=== PATIENT | female | born 1950 | race Caucasian/White ===

== ENCOUNTER 2019-07-30 10:45 | Inpatient (IN) | payer MEDICARE ==
[2019-07-30 11:25] LABS: ABSOLUTE BASOPHILS # (AUTO) 0.1 10^3/uL (0.0-0.2); ABSOLUTE EOSINOPHILS # (AUTO) 0.1 10^3/uL (0.0-0.6); ABSOLUTE LYMPHOCYTES (AUTO) 2.3 10^3/uL (0.5-4.7); ABSOLUTE MONOCYTES (AUTO) 0.9 10^3/uL (0.1-1.4); ABSOLUTE NEUT (AUTO) 4.5 10^3/uL (1.7-8.2); BASOPHILS % (AUTO) 0.9 % (0-2); HEMATOCRIT 45.3 % (36.0-47.0); HEMOGLOBIN 15.4 g/dL (12.0-15.5); LYMPHOCYTES % (AUTO) 29.8 % (13-45); MEAN CORPUSCULAR HEMOGLOBIN 31.3 pg (27.0-33.4); MEAN CORPUSCULAR HGB CONC 33.9 g/dL (32.0-36.0); MEAN CORPUSCULAR VOLUME 92 fl (80-97); MONOCYTES % (AUTO) 11.3 % (3-13); PLATELET COUNT 377 10^3/uL (150-450); RED BLOOD COUNT 4.91 10^6/uL (3.72-5.28); RED CELL DISTRIBUTION WIDTH 12.6 % (11.5-14.0); TOTAL CELLS COUNTED % (AUTO) 100 %; WHITE BLOOD COUNT 7.9 10^3/uL (4.0-10.5)
[2019-07-30 11:45] LABS: ALBUMIN 5.3 g/dL (3.5-5.0); ALKALINE PHOSPHATASE 81 U/L (38-126); ANION GAP 16 (5-19); ASPARTATE AMINO TRANSFERASE 32 U/L (14-36); BILIRUBIN,DIRECT 0.3 mg/dL (0.0-0.4); BILIRUBIN,TOTAL 0.5 mg/dL (0.2-1.3); BLOOD UREA NITROGEN 11 mg/dL (7-20); CALCIUM 10.3 mg/dL (8.4-10.2); CARBON DIOXIDE 24 mmol/L (22-30); CHLORIDE 104 mmol/L (98-107); CREATINE KINASE 78 U/L (30-135); GLUCOSE 86 mg/dL (75-110); POTASSIUM 4.3 mmol/L (3.6-5.0); TOTAL PROTEIN 8.9 g/dL (6.3-8.2)
[2019-07-30 11:54] LABS: APPEARANCE,URINE CLEAR; BILIRUBIN,URINE NEGATIVE (NEGATIVE); COLOR,URINE YELLOW; GLUCOSE, URINE NEGATIVE (NEGATIVE); KETONES,URINE NEGATIVE (NEGATIVE); LEUKOCYTE ESTERASE,URINE SMALL (NEGATIVE); NITRITE,URINE NEGATIVE (NEGATIVE); PROTEIN,URINE NEGATIVE (NEGATIVE); URINE SPECIFIC GRAVITY 1.006; UROBILINOGEN,URINE NEGATIVE mg/dL (<2.0)
[2019-07-30 12:02] LABS: CREATINE KINASE MB 1.51 ng/mL (<4.55)
--- NOTE | 2019-07-30 12:06 | RADIOLOGY REPORT (SQ) ---
EXAM DESCRIPTION: CHEST SINGLE VIEW COMPLETED DATE/TIME: 07/30/2019 11:51 am REASON FOR STUDY: bed 2 db COMPARISON: None. EXAM PARAMETERS: NUMBER OF VIEWS: One view. TECHNIQUE: Single frontal radiographic view of the chest acquired. RADIATION DOSE: NA LIMITATIONS: None. FINDINGS: LUNGS AND PLEURA: 3 mm calcified granuloma in the right upper lobe. There is no consolida tion, pleural effusion or pneumothorax. MEDIASTINUM AND HILAR STRUCTURES: No mediastinal or hilar contour abnormality. HEART AND VASCULAR STRUCTURES: The cardiac silhouette and pulmonary vasculature are within normal whalen its. BONES: No acute findings. HARDWARE: None in the chest. OTHER: No other finding. IMPRESSION: No acute cardiopulmonary process. TECHNICAL DOCUMENTATION: JOB ID: [id number] [employer]- All Rights Reserved Reading location - IP/workstation name: [email or web address]
[2019-07-30 12:07] LABS: TROPONIN I < 0.012 ng/mL
--- NOTE | 2019-07-30 12:21 | ER Document Report ---
ED General - General Chief Complaint: Shortness Of Breath Stated Complaint: SHORTNESS OF BREATH Time Seen by Provider: 07/30/19 12:07 Notes: 69-year-old female with no known medical problems presents to the emergency department via EMS for shortness of breath. Patient states that she does not know why it started and she broke down crying when I was interviewing her. She did complain of a little bit of chest pain in the left axillary area, denied nausea or dyspnea on exertion, patient is a smoker. No positive family history. No known cardiac history. No recent illness. Patient did recently have a abscess drained in the back of her head and states that she is on Bactrim. TRAVEL OUTSIDE OF THE [place] IN LAST 30 DAYS: No - Related Data Allergies/Adverse Reactions: No Known Allergies Allergy (Unverified 07/30/19 11:47) Past Medical History - Social History Smoking Status: Current Some Day Smoker Chew tobacco use (# tins/day): No Frequency of alcohol use: None Drug Abuse: None Family History: Reviewed & Not Pertinent Patient has suicidal ideation: No Patient has homicidal ideation: No Past Surgical History: Reports: Hx Section Review of Systems - Review of Systems Constitutional: See HPI EENT: No symptoms reported, See HPI Cardiovascular: See HPI Respiratory: No symptoms reported Gastrointestinal: See HPI Genitourinary: No symptoms reported Female Genitourinary: No symptoms reported Musculoskeletal: No symptoms reported Skin: No symptoms reported Hematologic/Lymphatic: No symptoms reported Neurological/Psychological: No symptoms reported Physical Exam - Vital signs Vitals: Temp Pulse Resp BP Pulse Ox 97.6 F 81 15 130/72 H 100 07/30/19 11:51 07/30/19 11:51 07/30/19 11:51 07/30/19 11:51 07/30/19 11:51 - Notes Notes: PHYSICAL EXAMINATION: Reviewed vital signs and charting by RN GENERAL: Alert, interacts well. No acute distress. HEAD: Normocephalic, atraumatic. EYES: Pupils equal and round. Extraocular movements intact. ENT: Oral mucosa moist, tongue midline. NECK: Full range of motion. Trachea midline. LUNGS: Clear to auscultation bilaterally, no wheezes, rales, or rhonchi. No respiratory distress. HEART: Irregularly irregular rhythm. No murmur ABDOMEN: soft, non-tender. No distention. Bowel sounds present EXTREMITIES: Moves all 4 extremities spontaneously. No edema, No cyanosis. PSYCH: Normal affect, normal mood. SKIN: Warm, dry, normal turgor. No rashes or lesions noted. Course - Re-evaluation Re-evalutation: 07/30/19 12:19 Patient presents in new onset A. fib with shortness of breath. EKG showed an irregularly irregular rhythm with a rate of 106, borderline left axis deviation, no ST segment elevations or ST segment depressions. Initial troponin negative. Patient does have a lot of anxiety. 07/30/19 13:48 Patient was started on a Cardizem drip and given a first dose of Lovenox 1 mg/kg. I called Dr. Ellsworth for consultation and called the hospitalist, Dr. Lewis, who admitted the patient to a telemetry bed. - Vital Signs Vital signs: Temp Pulse Resp BP Pulse Ox 97.6 F 81 15 130/72 H 100 07/30/19 11:51 07/30/19 11:51 07/30/19 11:51 07/30/19 11:51 07/30/19 11:51 - Laboratory Result Diagrams: 07/30/19 11:02 07/30/19 11:02 Laboratory results interpreted by me: 07/30/19 07/30/19 11:00 11:02 Calcium 10.3 H Total Protein 8.9 H Albumin 5.3 H Ur Leukocyte Esterase SMALL H Discharge - Discharge Clinical Impression: New onset atrial fibrillation Condition: Stable Disposition: ADMITTED INPATIENT Admitting Provider: Rogerio (Hospitalist) Unit Admitted: Telemetry
[2019-07-30] MEDS ORDERED: DILTIAZEM HCL/D5W 125 MG/125 ML RTUINJ IV PRN ×2 (13:23→15:38)
[2019-07-30] MEDS: ENOXAPARIN SODIUM INJ 80 MG/0.8 ML DISP.SYRIN SUBCUT SCH ×2 (14:18→21:37)
[2019-07-30] MEDS ORDERED: ACETAMINOPHEN 325 MG TABLET PO PRN (14:44)
[2019-07-30] MEDS ORDERED: DEXTROSE 40% GEL 15 GM TUBE PO PRN ×2 (14:46)
[2019-07-30] MEDS ORDERED: GLUCAGON,HUMAN RECOMB 1 MG INJ SUBCUT PRN (14:46)
[2019-07-30] MEDS ORDERED: DEXTROSE 50%-WATER 25 GM/50 ML DISP.SYRIN IV PRN ×2 (14:46)
[2019-07-30] MEDS ORDERED: DILTIAZEM HCL INJ 25 MG/5 ML VIAL IV PRN (15:04)
--- NOTE | 2019-07-30 15:37 | PDOC H&P ---
History of Present Illness Admission Date/PCP: 07/30/19 14:30 Patient complains of: Shortness of breath History of Present Illness: NESTOR CHAO is a 69 year old female with no significant past medical history presents with complaints of shortness of breath which started this morning. At the time patient was standing up playing a guitar. Shortness of breath lasted until patient arrived to the hospital. Was associated with mild lightheadedness. Patient denied noticing any palpitations at the time and also denies any chest pain. Patient denies any history of irregular heart rhythm or atrial fibrillation. EMS was called. On arrival EMS noted that her heart rate was ranging between 110-140s in atrial fibrillation and was given a bolus IV of diltiazem. In the ER patient was subsequently placed on a diltiazem drip the hospitalist service was called for admission. At this time, patient states that all the symptoms are resolved and she just feels a little bit tired. Patient does admit to caffeine use. Past Medical History Cardiac Medical History: Denies: Atrial Fibrillation, Congestive Heart Failure, Coronary Artery Disease, Hypertension, Peripheral Vascular Disease Pulmonary Medical History: Denies: Asthma, Chronic Obstructive Pulmonary Disease (COPD) Endocrine Medical History: Denies: Diabetes Mellitus Type 1, Diabetes Mellitus Type 2, Hyperthyroidism, Hypothyroidism Infectious History Note: Recent abscess in the back of her neck status post I&D Past Surgical History Past Surgical History: Reports: Section Social History Information Source: Patient Smoking Status: Current Some Day Smoker Electronic Cigarette use?: No Number of Years Smokin Last Time Smoked: Yesterday Frequency of Alcohol Use: None Hx Recreational Drug Use: No Drugs: None Hx Prescription Drug Abuse: No - Advance Directive Resuscitation Status: Full Code Family History Family History: None Parental Family History Reviewed: Yes Children Family History Reviewed: Yes Sibling(s) Family History Reviewed.: Yes Medication/Allergy Home Medications: Acetaminophen [Tylenol 325 mg Tablet] 650 mg PO Q4HP PRN 07/30/19 Sulfamethoxazole/Trimethoprim [Bactrim Ds Tablet] 1 each PO Q12 07/30/19 Allergies/Adverse Reactions: No Known Allergies Allergy (Unverified 07/30/19 11:47) Review of Systems Constitutional: ABSENT: chills, fatigue, fever(s) Eyes: ABSENT: visual disturbances Nose, Mouth, and Throat: ABSENT: headache(s) Cardiovascular: ABSENT: chest pain, edema, palpitations Respiratory: ABSENT: cough Gastrointestinal: ABSENT: abdominal pain, constipation, diarrhea, nausea, vomiting Genitourinary: ABSENT: dysuria Musculoskeletal: ABSENT: back pain, muscle weakness Integumentary: ABSENT: diaphoresis Neurological: ABSENT: confusion, syncope Endocrine: ABSENT: cold intolerance, heat intolerance Physical Exam Vital Signs: Temp Pulse Resp BP Pulse Ox 97.6 F 81 18 107/66 98 07/30/19 11:51 07/30/19 11:51 07/30/19 14:06 07/30/19 14:06 07/30/19 14:06 Intake & Output 07/29/19 07/30/19 07/31/19 06:59 06:59 06:59 Weight 65.317 kg General appearance: PRESENT: no acute distress, cooperative Head exam: PRESENT: normocephalic Neck exam: PRESENT: other - Well-healed I&D incision in the back of her neck without any active drainage or fluctuance or erythema. ABSENT: JVD Respiratory exam: PRESENT: clear to auscultation nicki, symmetrical, unlabored. ABSENT: tachypnea, wheezes Cardiovascular exam: PRESENT: irregular rhythm, +S1, +S2, tachycardia. ABSENT: diastolic murmur, rubs, systolic murmur GI/Abdominal exam: PRESENT: ascites, normal bowel sounds, soft. ABSENT: gu arding, rebound, rigid, tenderness Extremities exam: ABSENT: joint swelling, pedal edema Musculoskeletal exam: PRESENT: ambulatory Neurological exam: PRESENT: alert, awake, oriented to person, oriented to place, oriented to time, oriented to situation Results Laboratory Results: 07/30/19 11:02 07/30/19 11:02 07/30/19 07/30/19 07/30/19 11:00 11:02 11:02 WBC 7.9 RBC 4.91 Hgb 15.4 Hct 45.3 MCV 92 MCH 31.3 MCHC 33.9 RDW 12.6 Plt Count 377 Seg Neutrophils % 57.0 Sodium 144.0 Potassium 4.3 Chloride 104 Carbon Dioxide 24 Anion Gap 16 BUN 11 Creatinine 0.91 Est GFR ( Amer) > 60 Glucose 86 Calcium 10.3 H Total Bilirubin 0.5 AST 32 Alkaline Phosphatase 81 Total Protein 8.9 H Albumin 5.3 H TSH Urine Color YELLOW Urine Appearance CLEAR Urine pH 7.0 Ur Specific Bertrand 1.006 Urine Protein NEGATIVE Urine Glucose (UA) NEGATIVE Urine Ketones NEGATIVE Urine Blood NEGATIVE Urine Nitrite NEGATIVE Ur Leukocyte Esterase SMALL H Urine WBC (Auto) 3 Urine RBC (Auto) 1 07/30/19 11:02 WBC RBC Hgb Hct MCV MCH MCHC RDW Plt Count Seg Neutrophils % Sodium Potassium Chloride Carbon Dioxide Anion Gap BUN Creatinine Est GFR ( Amer) Glucose Calcium Total Bilirubin AST Alkaline Phosphatase Total Protein Albumin TSH 1.24 Urine Color Urine Appearance Urine pH Ur Specific Bertrand Urine Protein Urine Glucose (UA) Urine Ketones Urine Blood Urine Nitrite Ur Leukocyte Esterase Urine WBC (Auto) Urine RBC (Auto) 07/30/19 07/30/19 11:02 11:02 Creatine Kinase 78 CK-MB (CK-2) 1.51 Troponin I < 0.012 Impressions: Chest X-Ray 07/30/19 10:52 IMPRESSION: No acute cardiopulmonary process. Assessment and Plan - Diagnosis (1) Atrial fibrillation with rapid ventricular response Is this a current diagnosis for this admission?: Yes Plan: New onset atrial fibrillation with rapid ventricular response -Maintain on diltiazem drip -Admit to [facility] -I will start on p.o. diltiazem 30 mg every 6 hours while monitoring heart rate response monitoring blood pressure. -ChadsVASC of 2 --> Starting on lovenox and will transition to NOAC tomorrow. -Cardiology consulted -outpatient Echo -Follow-up TSH -Patient advised to avoid caffeine (2) Dyspnea Qualifiers: Dyspnea type: shortness of breath Qualified Code(s): R06.02 - Shortness of breath; R06.00 - Dyspnea, unspecified; R06.01 - Orthopnea Is this a current diagnosis for this admission?: Yes Plan: Dyspnea was likely secondary to A. fib with RVR. Currently has resolved. Chest x-ray negative. Troponin was negative. (3) Abscess of skin of neck Is this a current diagnosis for this admission?: Yes Plan: -S/p I&D in outside institution -Continue Bactrim which patient was placed on to complete a 10-day therapy on 07/05/2019 - Time Time Spent with patient: 35 or more minutes
[2019-07-30] MEDS: DILTIAZEM HCL 30 MG TABLET PO SCH ×2 (15:46→23:54)
--- NOTE | 2019-07-30 20:43 | ADVANCED CARE ---
- Diagnosis (1) Atrial fibrillation with rapid ventricular response Diagnosis Current: Yes (2) Dyspnea Diagnosis Current: Yes Attendance: Patient and myself Resuscitation Status: Full Code Discussion: Had discussion with patient regarding code status if cardiac arrest should occur specifically. Patient opted to be full code and states that she can be intubated if in such a scenario but her son Alex would be the one to determine how long patient should stay on a vent if that should occur. Patient also agreeable to intubation even in absence of cardiac arrest if simply needed for O2 supplementation or work of breathing or for the sake of an interventional procedure. Discussed if patient is agreeable to cardioversion if it occurs in the setting of unstable AFib and explained details of such scenario and patient is agreeable to this as well. Further discussed other potential options for treating stable afIB. Document(s) Completed: None Time Spent: 17 minutes
[2019-07-30] MEDS: SULFAMETHOXAZOLE/TRIMETHOPRIM 800-160 MG TABLET PO SCH (21:39)
[2019-07-31 04:56] LABS: INTERNATIONAL RATION (INR) 1.05; PROTHROMBIN TIME 13.8 SEC (11.4-15.4)
[2019-07-31 04:57] LABS: PARTIAL THROMBOPLASTIN TIME 42.2 SEC (23.5-35.8)
[2019-07-31 05:12] LABS: ANION GAP 11 (5-19); BLOOD UREA NITROGEN 9 mg/dL (7-20); CALCIUM 9.5 mg/dL (8.4-10.2); CARBON DIOXIDE 22 mmol/L (22-30); CHLORIDE 109 mmol/L (98-107); GLUCOSE 100 mg/dL (75-110); POTASSIUM 4.4 mmol/L (3.6-5.0)
[2019-07-31] MEDS: DILTIAZEM HCL 30 MG TABLET PO SCH ×2 (06:13→12:11)
[2019-07-31] MEDS: ENOXAPARIN SODIUM INJ 80 MG/0.8 ML DISP.SYRIN SUBCUT SCH (09:33)
[2019-07-31] MEDS: SULFAMETHOXAZOLE/TRIMETHOPRIM 800-160 MG TABLET PO SCH (09:34)
[2019-07-31 10:48] VITALS: BP 115/65
[2019-07-31] MEDS ORDERED: LIDOCAINE 1%/EPINEPHRINE INJ 20 ML VIAL INJ PRN (15:00)
--- NOTE | 2019-07-31 15:23 | PDOC CONSULTATION ---
Consultation Consult Date: 07/31/19 Provider Consulted: JACKIE GRAVES History of Present Illness Admission Date/PCP: 07/30/19 14:30 History of Present Illness: NESTOR CHAO is a 69 year old female who underwent a I&D of a posterior lower scalp abscess about a week ago. She noted that they drained a lot of pus at that time. She initially did well but however now she has developed recurrent swelling with pain and tenderness. No fever. No drainage at this time. Patient is currently in the hospital for evaluation of atrial fib and has been started on anticoagulation. Past Medical History Cardiac Medical History: Denies: Atrial Fibrillation, Congestive Heart Failure, Coronary Artery Disease, Hypertension, Peripheral Vascular Disease Pulmonary Medical History: Denies: Asthma, Chronic Obstructive Pulmonary Disease (COPD) Endocrine Medical History: Denies: Diabetes Mellitus Type 1, Diabetes Mellitus Type 2, Hyperthyroidism, Hypothyroidism Past Surgical History Past Surgical History: Reports: Section Social History Smoking Status: Current Every Day Smoker Cigarettes Packs Per Day: 1 Electronic Cigarette use?: No Number of Years Smokin Last Time Smoked: Yesterday Frequency of Alcohol Use: None Hx Recreational Drug Use: No Drugs: None Hx Prescription Drug Abuse: No - Advance Directive Resuscitation Status: Full Code Family History Family History: None Parental Family History Reviewed: No Children Family History Reviewed: No Sibling(s) Family History Reviewed.: No Medication/Allergy Home Medications: Acetaminophen [Tylenol 325 mg Tablet] 650 mg PO Q4HP PRN 07/30/19 Sulfamethoxazole/Trimethoprim [Bactrim Ds Tablet] 1 tab PO Q12 07/30/19 Apixaban [Eliquis 5 mg Tablet] 5 mg PO Q12 #60 tablet 07/31/19 Diltiazem HCl [Cardizem Cd 120 mg Capsule] 1 cap.sr PO DAILY #30 cap.sr 07/31/19 Allergies/Adverse Reactions: No Known Allergies Allergy (Unverified 07/30/19 11:47) Physical Exam Vital Signs: Temp Pulse Resp BP Pulse Ox 97.7 F 62 18 115/65 100 07/31/19 10:46 07/31/19 10:46 07/31/19 10:46 07/31/19 10:46 07/31/19 10:46 Intake & Output 07/30/19 07/31/19 08/01/19 06:59 06:59 06:59 Intake Total 673 240 Balance 673 240 Weight 65.2 kg General appearance: PRESENT: no acute distress, cooperative Neck exam: PRESENT: other - At the lower posterior scalp just above the hairline there is an approximately 3 cm region of fluctuance with overlying erythema and tenderness. Respiratory exam: PRESENT: clear to auscultation nicki Cardiovascular exam: PRESENT: RRR Results Laboratory Results: 07/30/19 11:02 12 04:19 07/31/19 04:19 Sodium 141.6 Potassium 4.4 Chloride 109 H Carbon Dioxide 22 Anion Gap 11 BUN 9 Creatinine 0.95 Est GFR ( Amer) > 60 Glucose 100 Calcium 9.5 07/30/19 07/30/19 11:02 11:02 Creatine Kinase 78 CK-MB (CK-2) 1.51 Troponin I < 0.012 Impressions: Chest X-Ray 07/30/19 10:52 IMPRESSION: No acute cardiopulmonary process. Assessment & Plan - Diagnosis (1) Scalp abscess Is this a current diagnosis for this admission?: Yes Plan: Recurrent abscess at the hairline posteriorly. We will plan incision and drainage under local anesthetic at patient's bedside. Patient is on a nticoagulation and I have explained to the patient that if I have difficulty with hemostasis, I may need to take the patient to the operating room. But I think is is reasonable to do this procedure at patient's bedside initially.
--- NOTE | 2019-07-31 16:04 | Operative Report ---
Operative Report DATE OF SURGERY: 07/31/19 PREOPERATIVE DIAGNOSIS: Scalp abscess POSTOPERATIVE DIAGNOSIS: 3 cm scalp abscess OPERATION: Scalp abscess incision and drainage SURGEON: JACKIE GRAVES ANESTHESIA: Local TISSUE REMOVED OR ALTERED: Pus drained's and swabbed for Gram stain and culture COMPLICATIONS: None ESTIMATED BLOOD LOSS: Minimal INTRAOPERATIVE FINDINGS: 3 cm abscess pocket at scalp near the hairline posteriorly PROCEDURE: Informed consent was obtained. Procedure was done at the patient's bedside. Patient's lower posterior scalp was prepped with alcohol. Local anesthetic with lidocaine with epinephrine was injected. Incision was made overlying the region of fluctuance over her previous wound that had healed over. Pus and some debris was evacuated. The pus was swabbed for Gram stain and culture. The wound was then flushed with lidocaine. Hemostasis appeared to be good. The wound was then packed with gauze. Patient tolerated procedure well with no apparent complications. Patient will need to be followed up at our surgery clinic tomorrow for packing removal and repacking. Recommend continuation of her antibiotics for couple more days. Patient is to call for any problems such as bleeding. In regards to her anticoagulation, although not ideal from a surgical perspective, she may resume it.
--- NOTE | 2019-07-31 16:11 | PDOC DISCHARGE SUMMARY ---
Impression - Admit/DC Date/PCP Admission Date/Primary Care Provider: 07/30/19 14:30 Discharge Date: 07/31/19 - Discharge Diagnosis (1) Atrial fibrillation with rapid ventricular response Is this a current diagnosis for this admission?: Yes (2) Dyspnea Is this a current diagnosis for this admission?: Yes (3) Abscess of skin of neck Is this a current diagnosis for this admission?: Yes - Assessment Summary: Patient was admitted for new onset atrial fibrillation with rapid ventricular response. She was taken to the IMCU as she was placed on a diltiazem drip to help control her heart rate. Heart rate started to improve and she was placed on oral diltiazem. She was continued on telemetry monitoring. She was also started on Lovenox given her chadsvasc score of 2. By the next morning, EKG revealed that patient was back in normal sinus rhythm at a normal rate. Patient has been transitioned to Eliquis to continue in the outpatient setting and has also been started on diltiazem CD 120 mg daily. Patient was seen by cardiology and has been given information to follow-up with Dr. Burton in the office to get an outpatient echocardiogram. Of note, patient also had a recent skin abscess at the back of her neck which was incised and drained in the outpatient setting few days ago and she was subsequently placed on Bactrim. This morning patient noted increased swelling of the abscess and as such I consulted surgery. Surgery has evaluated and performed another incision and drainage of the abscess and placed packing in the wound. Patient is being set up to follow-up at [facility] tomorrow to get the packing removed. Patient is to complete her outpatient regimen of the Bactrim and also follow-up with outside physician who performed the initial I&D on Sunday. Patient is being discharged in stable conditions. - Additional Information Resuscitation Status: Full Code Discharge Diet: As Tolerated Discharge Activity: Activity As Tolerated Referrals: DIMAS BURTON MD [ACTIVE STAFF] - 08/12/19 1:15 pm (Call to make appointment ) NANDA BOWEN FNP-C [NO LOCAL MD] - 08/05/19 3:00 pm [facility] [Provider Group] () Prescriptions: Diltiazem HCl [Cardizem Cd 120 mg Capsule] 1 cap.sr PO DAILY #30 cap.sr Apixaban [Eliquis 5 mg Tablet] 5 mg PO Q12 #60 tablet Home Medications: Acetaminophen [Tylenol 325 mg Tablet] 650 mg PO Q4HP PRN 07/30/19 Sulfamethoxazole/Trimethoprim [Bactrim Ds Tablet] 1 tab PO Q12 07/30/19 Apixaban [Eliquis 5 mg Tablet] 5 mg PO Q12 #60 tablet 07/31/19 Diltiazem HCl [Cardizem Cd 120 mg Capsule] 1 cap.sr PO DAILY #30 cap.sr 07/31/19 History of Present Illiness History of Present Illness: NESTOR CHAO is a 69 year old female with no significant past medical history presents with complaints of shortness of breath which started this morning. At the time patient was standing up playing a guitar. Shortness of breath lasted until patient arrived to the hospital. Was associated with mild lightheadedness. Patient denied noticing any palpitations at the time and also denies any chest pain. Patient denies any history of irregular heart rhythm or atrial fibrillation. EMS was called. On arrival EMS noted that her heart rate was ranging between 110-140s in atrial fibrillation and was given a bolus IV of diltiazem. In the ER patient was subsequently placed on a diltiazem drip the hospitalist service was called for admission. At this time, patient states that all the symptoms are resolved and she just feels a little bit tired. Patient does admit to caffeine use. Physical Exam Vital Signs: Temp Pulse Resp BP Pulse Ox 97.7 F 62 18 115/65 100 07/31/19 10:46 07/31/19 10:46 07/31/19 10:46 07/31/19 10:46 07/31/19 10:46 Intake & Output 07/30/19 07/31/19 08/01/19 06:59 06:59 06:59 Intake Total 673 240 Balance 673 240 Weight 65.2 kg General appearance: PRESENT: no acute distress, cooperative Respiratory exam: PRESENT: clear to auscultation nicki, symmetrical, unlabored. ABSENT: tachypnea, wheezes Cardiovascular exam: PRESENT: RRR, +S1, +S2. ABSENT: systolic murmur, tachycardia GI/Abdominal exam: PRESENT: normal bowel sounds, soft. ABSENT: rebound, rigid, tenderness Results Laboratory Results: WBC 7.9 10^3/uL (4.0-10.5) 07/30/19 11:02 RBC 4.91 10^6/uL (3.72-5.28) 07/30/19 11:02 Hgb 15.4 g/dL (12.0-15.5) 07/30/19 11:02 Hct 45.3 % (36.0-47.0) 07/30/19 11:02 MCV 92 fl (80-97) 07/30/19 11:02 MCH 31.3 pg (27.0-33.4) 07/30/19 11:02 MCHC 33.9 g/dL (32.0-36.0) 07/30/19 11:02 RDW 12.6 % (11.5-14.0) 07/30/19 11:02 Plt Count 377 10^3/uL (150-450) 07/30/19 11:02 Lymph % (Auto) 29.8 % (13-45) 07/30/19 11:02 [place] % (Auto) 11.3 % (3-13) 07/30/19 11:02 Eos % (Auto) 1.0 % (0-6) 07/30/19 11:02 Baso % (Auto) 0.9 % (0-2) 07/30/19 11:02 Absolute Neuts (auto) 4.5 10^3/uL (1.7-8.2) 07/30/19 11:02 Absolute Lymphs (auto) 2.3 10^3/uL (0.5-4.7) 07/30/19 11:02 Absolute Monos (auto) 0.9 10^3/uL (0.1-1.4) 07/30/19 11:02 Absolute Eos (auto) 0.1 10^3/uL (0.0-0.6) 07/30/19 11:02 Absolute Basos (auto) 0.1 10^3/uL (0.0-0.2) 07/30/19 11:02 Seg Neutrophils % 57.0 % (42-78) 07/30/19 11:02 PT 13.8 SEC (11.4-15.4) 07/31/19 04: INR 1.05 07/31/19 04:19 APTT 42.2 SEC (23.5-35.8) H 07/31/19 04:19 Sodium 141.6 mmol/L (137-145) 07/31/19 04:19 Potassium 4.4 mmol/L (3.6-5.0) 07/31/19 04:19 Chloride 109 mmol/L (98-107) H 07/31/19 04:19 Carbon Dioxide 22 mmol/L (22-30) 07/31/19 04:19 Anion Gap 11 (5-19) 07/31/19 04:19 BUN 9 mg/dL (7-20) 07/31/19 04:19 Creatinine 0.95 mg/dL (0.52-1.25) 07/31/19 04:19 Est GFR ( Amer) > 60 (>60) 07/31/19 04:19 Est GFR (MDRD) Non-Af 59 (>60) L 07/31/19 04:19 Glucose 100 mg/dL (75-110) 07/31/19 04:19 Calcium 9.5 mg/dL (8.4-10.2) 07/31/19 04:19 Total Bilirubin 0.5 mg/dL (0.2-1.3) 07/30/19 11:02 Direct Bilirubin 0.3 mg/dL (0.0-0.4) 07/30/19 11:02 Neonat Total Bilirubin Not Reportable 07/30/19 11:02 Neonat Direct Bilirubin Not Reportable 07/30/19 11:02 Neonat Indirect Bili Not Reportable 07/30/19 11:02 AST 32 U/L (14-36) 07/30/19 11:02 ALT 22 U/L (<35) 07/30/19 11:02 Alkaline Phosphatase 81 U/L (38-126) 07/30/19 11:02 Creatine Kinase 78 U/L (30-135) 07/30/19 11:02 CK-MB (CK-2) 1.51 ng/mL (<4.55) 07/30/19 11:02 Troponin I < 0.012 ng/mL 07/30/19 11:02 Total Protein 8.9 g/dL (6.3-8.2) H 07/30/19 11:02 Albumin 5.3 g/dL (3.5-5.0) H 07/30/19 11:02 TSH 1.24 uIU/mL (0.47-4.68) 07/30/19 11:02 Urine Color YELLOW 07/30/19 11:00 Urine Appearance CLEAR 07/30/19 11:00 Urine pH 7.0 (5.0-9.0) 07/30/19 11:00 Ur Specific [place] 1.006 07/30/19 11:00 Urine Protein NEGATIVE mg/dL (NEGATIVE) 07/30/19 11:00 Urine Glucose (UA) NEGATIVE mg/dL (NEGATIVE) 07/30/19 11:00 Urine Ketones NEGATIVE mg/dL (NEGATIVE) 07/30/19 11:00 Urine Blood NEGATIVE (NEGATIVE) 07/30/19 11:00 Urine Nitrite NEGATIVE (NEGATIVE) 07/30/19 11:00 Urine Bilirubin NEGATIVE (NEGATIVE) 07/30/19 11:00 Urine Urobilinogen NEGATIVE mg/dL (<2.0) 07/30/19 11:00 Ur Leukocyte Esterase SMALL (NEGATIVE) H 07/30/19 11:00 Urine WBC (Auto) 3 /HPF 07/30/19 11:00 Urine RBC (Auto) 1 /HPF 07/30/19 11:00 U Hyaline Cast (Auto) 1 /LPF 07/30/19 11:00 Urine Bacteria (Auto) TRACE /HPF 07/30/19 11:00 Squamous Epi Cells Auto 2 /HPF 07/30/19 11:00 Urine Mucus (Auto) RARE /LPF 07/30/19 11:00 Urine Ascorbic Acid NEGATIVE (NEGATIVE) 07/30/19 11:00 07/30/19 11:02 CK-MB (CK-2) 1.51 Troponin I < 0.012 Impressions: Chest X-Ray 07/30/19 10:52 IMPRESSION: No acute cardiopulmonary process. Plan Time Spent: Greater than 30 Minutes Stroke Is this a Stroke Patient?: No Acute Heart Failure - Is this a Heart Failure Patient?: No
--- NOTE | 2019-07-31 19:16 | EKG REPORT ---
SEVERITY:- ABNORMAL ECG - SINUS RHYTHM LEFT ANTERIOR FASCICULAR BLOCK : Confirmed by: Evelyn Ellsworth MD 31-Jul-2019 19:14:12
== END 2019-07-31 18:00 | disposition home or self-care (01) | DRG 309 ==
LOC: ER 10:45 → EH 14:30 → 3N 17:34
PROVIDERS: ADMIT Internal Medicine; ATTEND Internal Medicine
PROC: 0J903ZX Drainage of Scalp Subcutaneous Tissue and Fascia, Percutaneous Approach, Diagnostic (ICD-10-PCS; principal; 2019-07-31)
DX: I48.0 Paroxysmal atrial fibrillation (principal); L02.811 Cutaneous abscess of head [any part, except face]; F17.210 Nicotine dependence, cigarettes, uncomplicated; Z79.899 Other long term (current) drug therapy
CPT/HCPCS: 36415; 71045; 80048; 80053; 81001; 82550; 82553; 84443; 84484; 85025; 85610; 85730; 87070; 87077; 87186; 87205; 93005; 93010; 96365; 96372; 99285; J1650; J3490

== ENCOUNTER 2019-09-03 10:07 | Emergency (ER) | payer MEDICARE ==
--- NOTE | 2019-09-03 10:33 | ER Document Report ---
ED General - General Chief Complaint: Breathing Difficulty Stated Complaint: TROUBLE BREATHING/SHORTNESS OF BREATH Primary Care Provider: NANDA BOWEN FNP-C [Primary Care Provider] - Follow up as needed TRAVEL OUTSIDE OF THE [place] IN LAST 30 DAYS: No - HPI Notes: History of Dennis cha diagnosed before July 27 was seen by cardiology and admitted on a Cardizem drip and ultimately discharged on Cardizem and Eliquis July 27. Also has been started on digoxin in the last 2 weeks. She was scheduled for a stress test today and she went underwent the initial preparation and pre-stress imaging but started to have feelings of dyspnea when she was sitting. They never administered any stress component of the testing. She said when she got up felt more short of breath her friends called for help they got her wheelchair she says seemed even worse at that point after sitting down in the wheelchair. She denies any vision change or feelings like she might pass out it was mainly just the feeling of that she could not catch her breath. She denies any chest pain or discomfort at all or focal neurologic deficit. She says she has had a viral "flu" like illness preceding week or so. She says the whole period of increased dyspnea lasted about 20 minutes. Now she feels not completely back to baseline but still no chest pain. She has a count of feels like when she had came to the ED for the A. fib rapid response of just shortness of breath. - Related Data Allergies/Adverse Reactions: No Known Allergies Allergy (Unverified 07/30/19 11:47) Past Medical History - Social History Family History: None - Past Medical History Cardiac Medical History: Denies: Hx Atrial Fibrillation, Hx Congestive Heart Failure, Hx Coronary Artery Disease, Hx Hypertension, Hx Peripheral Vascular Disease Pulmonary Medical History: Denies: Hx Asthma, Hx COPD Endocrine Medical History: Denies: Hx Diabetes Mellitus Type 1, Hx Diabetes Mellitus Type 2, Hx Hyperthyroidism, Hx Hypothyroidism Past Surgical History: Reports: Hx Section Physical Exam - Vital signs Vitals: Resp 26 H 09/03/19 10:16 Interpretation: Normal - Notes Notes: At the time I am seeing the patient: On RA, 98%, HR 70s, 80s A. fib on monitor, no acute distress speaking in full sentences comfortably. - General General appearance: Appears well, Alert In distress: None - HEENT Head: Normocephalic, Atraumatic Eyes: Normal. No: Pale conjunctiva, Scleral icterus Extraocular movements intact: Yes Pupils: PERRL - Respiratory Respiratory status: No respiratory distress Chest status: Nontender Breath sounds: Normal Chest palpation: Normal - Cardiovascular Rhythm: Irregularly irregular. No: Tachycardia, Bradycardia Murmur: No Pulses: Normal: Radial, Dorsalis pedis - Abdominal Inspection: Normal Distension: No distension Bowel sounds: Normal Tenderness: Nontender Organomegaly: No organomegaly - Back Back: Normal, Nontender - Extremities General upper extremity: Normal inspection - No peripheral edema warm well perfused x4, Nontender, Normal color, Normal ROM, Normal temperature General lower extremity: Normal inspection, Nontender, Normal color, Normal ROM, Normal temperature, Normal weight bearing. No: Cleo's sign - Neurological Neuro grossly intact: Yes Cognition: Normal Orientation: AAOx4 [place] Coma Scale Eye Opening: Spontaneous [place] Coma Scale Verbal: Oriented [place] Coma Scale Motor: Obeys Commands [place] Coma Scale Total: 15 Speech: Normal Motor strength normal: LUE, RUE, LLE, RLE Sensory: Normal - Psychological Associated symptoms: Normal affect, Normal mood - Skin Skin Temperature: Warm Skin Moisture: Dry Skin Color: Normal Course - Re-evaluation Re-evalutation: 09/03/19 10:51 I reviewed EKG today it is A. fib with rate of 69. Compared to prior on 07/31/2019 which also showed same left anterior fascicular block there is no new ST elevations depressions or voltage changes. [place] unchanged. All other intervals are wnl. - Vital Signs Vital signs: Temp Pulse Resp BP Pulse Ox 98.1 F 16 114/53 L 98 09/03/19 10:18 09/03/19 11:01 09/03/19 11:01 09/03/19 11:01 - Laboratory Result Diagrams: 09/03/19 10:36 09/03/19 10:36 Laboratory results interpreted by me: 09/03/19 09/03/19 10:36 11:28 Glucose 150 H Digoxin < 0.40 L Discharge - Discharge Clinical Impression: Dyspnea Qualifiers: Dyspnea type: unspecified Qualified Code(s): R06.00 - Dyspnea, unspecified Condition: Good Disposition: HOME, SELF-CARE Additional Instructions: Today in the emergency department eloped well and your EKG is unchanged and your rate is controlled. Dr. Ellsworth also reviewed your EKG and your labs here and how you looked. It sounds like the event earlier was more of you standing up too fast but otherwise he had no evidence of any abnormalities on your echocardiogram and your cardiac rhythm and monitoring otherwise. He is rescheduled your stress test for next week. If you do continue to have a recurrence of the severe dyspnea or any feeling like you are going to pass out or other concerns he can always access the emergency department and call Dr. Ellsworth and your primary care doctor. Please continue to take your medications as usual we did send off a digoxin level but you do not have any signs of digoxin toxicity on your EKG today. Referrals: NANDA BOWEN, [facility] [Primary Care Provider] - Follow up as needed
[2019-09-03 11:00] LABS: ABSOLUTE BASOPHILS # (AUTO) 0.1 10^3/uL (0.0-0.2); ABSOLUTE EOSINOPHILS # (AUTO) 0.1 10^3/uL (0.0-0.6); ABSOLUTE LYMPHOCYTES (AUTO) 1.7 10^3/uL (0.5-4.7); ABSOLUTE MONOCYTES (AUTO) 0.3 10^3/uL (0.1-1.4); ABSOLUTE NEUT (AUTO) 4.8 10^3/uL (1.7-8.2); BASOPHILS % (AUTO) 1.3 % (0-2); EOSINOPHILS % (AUTO) 1.3 % (0-6); HEMATOCRIT 37.4 % (36.0-47.0); HEMOGLOBIN 12.8 g/dL (12.0-15.5); LYMPHOCYTES % (AUTO) 23.7 % (13-45); MEAN CORPUSCULAR HGB CONC 34.2 g/dL (32.0-36.0); MEAN CORPUSCULAR VOLUME 91 fl (80-97); MONOCYTES % (AUTO) 4.5 % (3-13); PLATELET COUNT 291 10^3/uL (150-450); RED BLOOD COUNT 4.13 10^6/uL (3.72-5.28); SEGMENTED NEUTROPHILS % (AUTO) 69.2 % (42-78); TOTAL CELLS COUNTED % (AUTO) 100 %
[2019-09-03 11:19] LABS: ALBUMIN 4.4 g/dL (3.5-5.0); ALKALINE PHOSPHATASE 78 U/L (38-126); ANION GAP 11 (5-19); ASPARTATE AMINO TRANSFERASE 33 U/L (14-36); BILIRUBIN,DIRECT 0.2 mg/dL (0.0-0.4); BILIRUBIN,TOTAL 0.5 mg/dL (0.2-1.3); BLOOD UREA NITROGEN 10 mg/dL (7-20); CALCIUM 9.8 mg/dL (8.4-10.2); CARBON DIOXIDE 25 mmol/L (22-30); CHLORIDE 106 mmol/L (98-107); GLUCOSE 150 mg/dL (75-110); POTASSIUM 4.2 mmol/L (3.6-5.0); TOTAL PROTEIN 7.2 g/dL (6.3-8.2)
--- NOTE | 2019-09-03 11:28 | EKG REPORT ---
SEVERITY:- ABNORMAL ECG - ATRIAL FIBRILLATION, V-RATE 59-79 LEFT ANTERIOR FASCICULAR BLOCK ABNRM R PROG, CONSIDER ASMI OR LEAD PLACEMENT : Confirmed by: Renee Zambrano 03-Sep-2019 11:28:00
--- NOTE | 2019-09-03 11:57 | RADIOLOGY REPORT (SQ) ---
EXAM DESCRIPTION: CHEST SINGLE VIEW COMPLETED DATE/TIME: 09/03/2019 11:39 am REASON FOR STUDY: SOB COMPARISON: AP view of the chest from 07/30/2019. EXAM PARAMETERS: NUMBER OF VIEWS: One view. TECHNIQUE: An AP view of the chest was obtained. RADIATION DOSE: NA LIMITATIONS: None. FINDINGS: LUNGS AND PLEURA: Stable granuloma in the right upper lobe. There is no consolidation, pl eural effusion or pneumothorax. MEDIASTINUM AND HILAR STRUCTURES: No mediastinal or hilar contour abnormality. HEART AND VASCULAR STRUCTURES: The cardiac silhouette and pulmonary vasculature are within normal whalen its. BONES: No acute findings. HARDWARE: None in the chest. OTHER: No other finding. IMPRESSION: No acute cardiopulmonary process. TECHNICAL DOCUMENTATION: JOB ID: [id number] [employer]- All Rights Reserved Reading location - IP/workstation name: [email or web address]
[2019-09-03 12:06] LABS: APPEARANCE,URINE CLEAR; BILIRUBIN,URINE NEGATIVE (NEGATIVE); COLOR,URINE YELLOW; GLUCOSE, URINE NEGATIVE (NEGATIVE); KETONES,URINE NEGATIVE (NEGATIVE); LEUKOCYTE ESTERASE,URINE NEGATIVE (NEGATIVE); NITRITE,URINE NEGATIVE (NEGATIVE); PROTEIN,URINE NEGATIVE (NEGATIVE); URINE SPECIFIC GRAVITY 1.013; UROBILINOGEN,URINE NEGATIVE mg/dL (<2.0)
[2019-09-03 13:00] VITALS: BP 121/57
== END 2019-09-03 12:57 | disposition home or self-care (01) ==
LOC: ER 10:07
DX: R06.00 Dyspnea, unspecified (principal); Z79.899 Other long term (current) drug therapy; Z79.01 Long term (current) use of anticoagulants
CPT/HCPCS: 36415; 71045; 78451; 80053; 80162; 81001; 85025; 93005; 93010; 99285; A9500; Q9969

== ENCOUNTER → 2019-09-03 | Outpatient (CLI) | payer MEDICARE ==
--- NOTE | 2019-09-03 22:45 | NONINVASIVE CARDIOLOGY REPORT ---
RESTING CARDIOLITE NUCLEAR IMAGING INTERPRETATION: The patient came in for a IV Lexiscan Cardiolite stress test. The patient was given a rest injection of 10.98 mCi of technetium 99 sestamibi intravenously. Soon after the patient complained of shortness of breath and dizziness and heart rate dipped down into the 40s although with a stable blood pressure. In view of the patient's symptoms the stress portion of the test was not completed. The patient was sent to the emergency room for further evaluation. INTERPRETATION: Review of the rest images show that there is no perfusion defects. All segments of the myocardium at rest had normal motion contraction and thickening by gated study. LV ejection fraction was normal at 78%. The patient will be scheduled for Lexiscan Cardiolite stress test at a later date after evaluation in the emergency room. ERIC
== END ==
LOC: RAD 08:16
PROVIDERS: ATTEND Specialist
DX: I48.91 Unspecified atrial fibrillation (principal); R06.02 Shortness of breath
CPT/HCPCS: 78451; A9500; Q9969

== ENCOUNTER → 2019-09-10 | Outpatient (CLI) | payer MEDICARE ==
[~2019-09-10] MED LIST: REGADENOSON INJ 0.4 MG/5 ML DISP.SYRIN IV ONE
--- NOTE | 2019-09-11 00:06 | DRAGON STRESS TEST REPORT ---
2-day Intravenous Lexiscan Cardiolite stress test using single photon emmision computerized tomography. Date of rest images: 09/03/2019. Date of stress imagin09/10/2019. Ordering Provider: Dr. Evelyn Ellsworth. Patient's status: Out Patient Indication: Shortness of breath and atrial fibrillation.. Coronary risk factors: Age, Resting EKG: Atrial Fibrillation.Diffuse NS ST-T changes Stress EKG: No changes of ischemia. Reason for termination: Protocol. Conclusions: Normal EKG and hemodynamic response to IV Lexiscan. Nuclear data: At rest on 09/03/2019 the patient was given 10.98 millicuries of technetium 99m sestamibi injected intravenously. As per protocol rest gated SPECT images were obtained on 09/03/2019. She developed shortness of breath and was sent for evaluation to the emergency room. Hence stress imaging was not done on that day. Subsequently on 09/10/2019 the patient was given intravenous Lexiscan at a dose of 0.4 mg in 5 mL intravenously, followed by flush with normal saline. Subsequently the stress dose of 41.4 millicuries of technetium 99m sestamibi was injected intravenously on 09/10/2019. As per protocol stress gated images were obtained. Today on the day of stress testing the patient had no chest pain or discomfort after IV Lexiscan, there was no shortness of breath and there were no arrhythmias seen. Nuclear interpretation: Review of images showed that all segments of the myocardium had normal perfusion at rest, and normal perfusion post stress with IV Lexiscan. All segments of the myocardium had normal motion, contraction, and thickening by gated study. T. I D. ratio was normal at 1.05. There is no transient ischemic dilatation of the left ventricle. Computer read rest, and stress left ventricular ejection fraction were 78 %, and 72 %, respectively. Conclusion: 1. There is no scintigraphic evidence of Lexiscan induced myocardial ischemia. 2. There is no scintigraphic evidence of myocardial infarction/scar. Recommendations: Aggressive risk factor modification, and treating the underlying co- morbidities. MTDD
== END ==
LOC: RAD 09:01
PROVIDERS: ATTEND Specialist
DX: I48.91 Unspecified atrial fibrillation (principal); R06.02 Shortness of breath
CPT/HCPCS: 93017; 78451; A9500; J2785; Q9969